=== PATIENT | female | born 1945 | race Caucasian/White ===

== ENCOUNTER → 2016-10-06 14:49 | Outpatient (CLI) | payer MEDICARE ==
[2016-04-17 10:06] VITALS: BMI 16.8
[~2016-10-06 14:49] MED LIST: ANUSOL-HC25 MG RC; CHLOR-TRIMETON4 MG PO; FLUTICASONE PRO16 GM NASAL; GLUCOSAMINE & C1 CAP PO; HYDROCODONE-APA1 TAB PO; MAGNESIUM-2 GM/50 M1; MULTIPLE VITAMI1 TA1 PO; NEXIUM40 MG PO; ULTRAM50 MG PO; VITAMIN E400 UNI2 PO; ZYRTEC10 MG PO
== END | disposition home or self-care (01) ==
LOC: D.US 14:49
DX: R60.0 Localized edema (principal)

== ENCOUNTER 2016-12-13 06:31 | Day surgery (SDC) | payer MEDICARE ==
[~2016-12-13] VITALS: Ht 160 cm; Wt 42.7 kg
[2016-12-13 07:20] LABS: HEMOGLOBIN 11.8 g/dL (12-16); MCH 26.6 pg (26.0-34.0); MCHC 31.9 g/dL (31.0-37.0); MCV 83.3 fL (80.0-100.0); MEAN PLATELET VOLUME 10.8 fL (7.4-10.4); RBC 4.44 10x6/uL (4.00-5.40); RDW 17.4 % (11.5-14.5); WBC 7.3 10x3/uL (4.8-10.8)
[2016-12-13] MEDS ORDERED: MAGNESIUM PO (07:51)
[2016-12-13] MEDS ORDERED: K-DUR20 MEQ PO (07:53)
[2016-12-13] MEDS ORDERED: CILOSTAZOL50 MG (07:53)
[2016-12-13] MEDS ORDERED: LIPITOR40 MG PO (07:53)
[2016-12-13] MEDS ORDERED: PLAVIX75 MG PO (07:53)
[2016-12-13] MEDS ORDERED: PROZAC20 MG PO (07:54)
[2016-12-13] MEDS ORDERED: BAYER CHEWABLE81 MG PO (07:54)
[2016-12-13 08:16] VITALS: BP 137/43; Ht 160 cm; Wt 42.7 kg
--- NOTE | 2016-12-13 09:45 | NUR ---
0905-RECD TO ROOM. ALERT. TO BATHROOM WITH ASSIST. IV PATENT 0915-FULL LIQUIDS SERVED.
--- NOTE | 2016-12-13 10:30 | NUR ---
1005-IV D/C AND D/C INSTRUCTIONS REVIEWED. 1015-D/C HOME VIA .
--- NOTE | 2016-12-15 15:57 | OP ---
PATIENT NAME: NARCISA MEAD MEDICAL RECORD: [id number] :47 LOCATION:[facility] ADMISSION DATE: SURGEON: DOUG VENTURA DO DATE OF OPERATION: 12/13/2016 DATE OF PROCEDURE: 12/13/2016 PROCEDURE: EGD with biopsies and hemostasis with gold probe cauterization. INDICATIONS FOR PROCEDURE: Abnormal findings on CT scan showing enlarged rugal folds. SCOPE: Olympus video gastroscope. MEDICATIONS: Propofol 170 mg IV per anesthesia. ESTIMATED BLOOD LOSS: Less than 5 mL. COMPLICATIONS: None. DESCRIPTION OF PROCEDURE: Informed consent was given. The patient was made comfortable with the above medication. After reaching an adequate level of sedation by slow IV push, the patient was placed on her left side. The endoscope was then advanced under direct visualization through the mouth to the second portion of the duodenum. The upper, middle, and distal thirds of the esophagus appeared normal. At the GE junction, there was mild evidence of reflux esophagitis, LA class B. Two biopsies were taken. After these biopsies, there was a fair amount of bleeding, which was monitored for a short period. When the bleeding did not stop, a gold probe was used for cauterization for hemostasis successfully. The endoscope was advanced into the stomach and retroflexed to view the cardia, which appeared normal. In the stomach, there were enlarged rugal folds throughout the entire body extending up into the fundus and down towards the antrum. The antrum appeared normal without evidence of erosions or ulcerations. The scope was advanced beyond the pylorus into the duodenum where the bulb and second portion of the duodenum appeared normal. Scope was withdrawn back into the stomach and multiple biopsies were taken in the antrum, body of the stomach, and fundus of the stomach. Biopsies were submitted for histology and to rule out H. pylori. Scope was then withdrawn from the patient. The patient tolerated the procedure well and there were no complications. IMPRESSION: 1. Reflux esophagitis grade B, biopsies taken. 2. Enlarge rugal folds, multiple biopsies taken. 3. Hemostasis with gold probe cauterization taken of the GE junction after biopsies. 4. No specific abnormalities to correlate to abnormal CT findings other than the enlarged rugal folds which have been biopsied. There were no focal sites that appeared abnormal compared to the rest of the mucosa of the stomach. PLAN AND RECOMMENDATIONS: 1. Discharge home when recovery parameters are met. 2. Continue current diet. 3. Continue current medications, including Nexium 40 mg daily. 4. Recommend alcohol cessation. OPERATIVE REPORT [id number] NARCISA MEAD 5. Follow up biopsy specimen results with further recommendations to follow findings. TRANSINT:[id number] Voice Confirmation ID: [id number] DOCUMENT ID: [id number] DOUG VENTURA DO at 1557 CC: [id number] DICTATION DATE: 12/13/16 0851 CLASSIFICATION AND TREATMENT DIRECTOR: 12/13/16 1224 [facility] 12/13/[address] [facility] [address] [place] [address]
== END 2016-12-13 10:15 | disposition home or self-care (01) ==
LOC: D.OPS 06:31
PROVIDERS: Anesthesiology
DX: K21.0 Gastro-esophageal reflux disease with esophagitis (principal); Z85.038 Personal history of other malignant neoplasm of large intestine; F17.200 Nicotine dependence, unspecified, uncomplicated; Z01.812 Encounter for preprocedural laboratory examination

== ENCOUNTER 2017-05-26 15:50 | Emergency (ER) | payer MEDICARE ==
[2016-12-13 08:16] VITALS: BMI 16.6
[~2017-05-26 15:50] MED LIST changes: +BAYER CHEWABLE81 MG PO; +CILOSTAZOL50 MG; +K-DUR20 MEQ PO; +LIPITOR40 MG PO; +MAGNESIUM PO; +PLAVIX75 MG PO; +PROZAC20 MG PO
== END 2017-05-26 17:33 | disposition home or self-care (01) ==
LOC: D.ER 15:50
DX: S42.294A Other nondisplaced fracture of upper end of right humerus, initial encounter for closed fracture (principal); W19.XXXA Unspecified fall, initial encounter; Y93.89 Activity, other specified; Y92.029 Unspecified place in mobile home as the place of occurrence of the external cause; Z85.038 Personal history of other malignant neoplasm of large intestine

== ENCOUNTER → 2017-09-14 17:38 | Outpatient (CLI) | payer MEDICARE ==
[2016-12-13 08:16] VITALS: BMI 16.6
== END | disposition home or self-care (01) ==
LOC: D.MAMMO 13:30
DX: Z12.31 Encounter for screening mammogram for malignant neoplasm of breast (principal)

== ENCOUNTER → 2018-07-24 15:41 | Outpatient (CLI) | payer MEDICARE ==
[2016-12-13 08:16] VITALS: BMI 16.6
== END | disposition home or self-care (01) ==
LOC: D.CT 15:41
DX: J44.9 Chronic obstructive pulmonary disease, unspecified (principal)

== ENCOUNTER 2018-09-04 08:38 | Day surgery (SDC) | payer MEDICARE ==
[~2018-09-04] VITALS: Ht 160 cm; Wt 43.2 kg
[2018-09-04 09:07] LABS: HEMATOCRIT 47.7 % (36.0-48.0); HEMOGLOBIN 16.7 g/dL (12-16); MCH 33.6 pg (26.0-34.0); MEAN PLATELET VOLUME 9.8 fL (7.4-10.4); RBC 4.97 10x6/uL (4.00-5.40); RDW 14.6 % (11.5-14.5); WBC 10.8 10x3/uL (4.8-10.8)
[2018-09-04 09:14] LABS: INR 1.17 (0.85-1.17); PROTIME 14.4 SECONDS (11.6-15.0)
[2018-09-04 09:20] VITALS: BP 143/71; Ht 160 cm; Wt 43.2 kg
[2018-09-04 09:21] LABS: ANION GAP 17.5 mmol/L (8-16); CALCIUM 9.3 mg/dL (8.5-10.1); CARBON DIOXIDE 26.3 mmol/L (21.0-32.0); CREATININE - SERUM 0.8 mg/dL (0.6-1.3); POTASSIUM - SERUM 3.8 mmol/L (3.5-5.1)
--- NOTE | 2018-09-06 10:57 | OP ---
PATIENT NAME: NARCISA MEAD MEDICAL RECORD: [id number] :47 LOCATION:[facility] ADMISSION DATE: SURGEON: DOUG VENTURA DO DATE OF OPERATION: 09/04/2018 PROCEDURE: Colonoscopy with polypectomy. INDICATIONS FOR PROCEDURE: History of colon cancer, status post resection in 2005 as well as a personal history of colon polyps. Her last colonoscopy was in April of 2016. SCOPE: Olympus video pediatric colonoscope. MEDICATIONS: Propofol 300 mg IV per anesthesia. WITHDRAWAL TIME: 14 minutes. ESTIMATED BLOOD LOSS: Minimal. COMPLICATIONS: None. FINDINGS: Informed consent was given. The patient was made comfortable with the above medication. After reaching an adequate level of sedation by slow IV push, the patient was placed on her left side. A digital rectal examination was performed and was normal. The endoscope was then advanced under direct visualization through the rectum to the cecum/ileocolonic anastomosis. The endoscope was slowly withdrawn and mucosa was carefully examined. There was only 1 polyp visualized on today's examination. It was benign appearing, sessile polyp, which measured approximately 8-9 mm in size. It was removed using a hot snare. There appeared to be 2 anastomosis visualized on today's examination. The first was an ileocolonic anastomosis and the other was a colocolonic anastomosis located at approximately 15 cm. Both sites appeared normal without any abnormal tissue growth surrounding them. Retroflexion was performed in the rectum with visualization of grade I internal hemorrhoids without bleeding. The endoscope was withdrawn from the patient. The patient tolerated the procedure well and there were no complications. IMPRESSION: 1. A single benign-appearing sessile polyp was removed from the ascending colon using a hot snare. 2. Prior intervention in the form of partial colon resections with anastomosis. 3. Grade I internal hemorrhoids without active bleeding. PLAN AND RECOMMENDATIONS: 1. Discharge home when recovery parameters are met. 2. Follow up biopsy specimen results. 3. High fiber diet. 4. Continue current medications. 5. Recall colonoscopy in 2-3 years for continued surveillance based on a personal history of polyps and colon cancer, status post resection. TRANSINT:[id number] Voice Confirmation ID: [id number] DOCUMENT ID: [id number] OPERATIVE REPORT [id number] NARCISA MEAD DOUG VENTURA DO at 7523 CC: [id number] DICTATION DATE: 09/04/18 1116 [employer] BUSINESS ANALYST: 09/04/18 1203 [facility] [place] 09/04/18 [facility] [address] [place] [id number]
== END 2018-09-04 12:10 | disposition home or self-care (01) ==
LOC: D.OPS 08:38
PROVIDERS: Anesthesiology
DX: Z85.038 Personal history of other malignant neoplasm of large intestine (principal); K64.0 First degree hemorrhoids; D12.2 Benign neoplasm of ascending colon; Z01.812 Encounter for preprocedural laboratory examination

== ENCOUNTER 2018-09-11 08:00 | Outpatient (CLI) | payer MEDICARE ==
[2018-09-04 09:20] VITALS: BMI 16.8
== END 2018-09-11 09:00 | disposition home or self-care (01) ==
LOC: D.MAMMO 08:00
DX: Z12.31 Encounter for screening mammogram for malignant neoplasm of breast (principal)

== ENCOUNTER → 2018-09-27 10:02 | Outpatient (CLI) | payer MEDICARE ==
[2018-09-04 09:20] VITALS: BMI 16.8
[2018-09-27 10:44] LABS: BASOPHILS 0.2 % (0-2); EOSINOPHILS 1.4 % (0-7); HEMATOCRIT 44.6 % (36.0-48.0); HEMOGLOBIN 15.4 g/dL (12-16); IMMATURE GRANULOCYTES 0.3 % (0-5); LYMPHOCYTES 34.8 % (15-50); MCH 33.6 pg (26.0-34.0); MCHC 34.5 g/dL (31.0-37.0); MCV 97.4 fL (80.0-100.0); MEAN PLATELET VOLUME 9.7 fL (7.4-10.4); MONOCYTES 7.2 % (2-11); NEUTROPHILS 56.1 % (40-80); PLATELET COUNT 188 10x3/uL (130-400); RBC 4.58 10x6/uL (4.00-5.40); WBC 9.9 10x3/uL (4.8-10.8)
[2018-09-27 11:44] LABS: APPEARANCE CLEAR (CLEAR); BILIRUBIN NEGATIVE (NEGATIVE); COLOR STRAW (YELLOW); GLUCOSE NEGATIVE (NEGATIVE); KETONE NEGATIVE (NEGATIVE); NITRITE NEGATIVE (NEGATIVE); PROTEIN NEGATIVE (NEGATIVE); SPECIFIC GRAVITY 1.005 (1.005-1.020); UROBILINOGEN NORMAL (NORMAL)
[2018-09-27 11:45] LABS: BACTERIA FEW /hpf (NONE SEEN); MUCUS <1+ /lpf (NONE SEEN); WHITE CELLS - URINE RARE /hpf (0-5)
[2018-09-27 11:46] LABS: EPITHELIAL CELLS RARE /hpf (0-5)
[2018-09-27 12:41] LABS: ERYTHROCYTE SEDIMENTATION RATE 6 mm/hr (0-30)
== END | disposition home or self-care (01) ==
LOC: D.RAD 10:02
PROVIDERS: ATTEND Internal Medicine Gastroenterology
DX: R10.13 Epigastric pain (principal); R19.7 Diarrhea, unspecified

== ENCOUNTER 2018-11-08 08:25 | Day surgery (SDC) | payer MEDICARE ==
[~2018-11-08] VITALS: Ht 160 cm; Wt 41.8 kg
[2018-11-08 08:52] LABS: BASOPHILS 0.1 % (0-2); EOSINOPHILS 1.1 % (0-7); HEMATOCRIT 43.6 % (36.0-48.0); HEMOGLOBIN 15.5 g/dL (12-16); IMMATURE GRANULOCYTES 0.1 % (0-5); LYMPHOCYTES 27.4 % (15-50); MCH 34.9 pg (26.0-34.0); MCHC 35.6 g/dL (31.0-37.0); MCV 98.2 fL (80.0-100.0); MEAN PLATELET VOLUME 10.4 fL (7.4-10.4); MONOCYTES 12.3 % (2-11); PLATELET COUNT 170 10x3/uL (130-400); RBC 4.44 10x6/uL (4.00-5.40); RDW 13.4 % (11.5-14.5); WBC 9.9 10x3/uL (4.8-10.8)
[2018-11-08 09:12] LABS: APTT 33.9 SECONDS (22.8-39.4); INR 1.08 (0.85-1.17); PROTIME 13.5 SECONDS (11.6-15.0)
[2018-11-08] MEDS ORDERED: REMERON15 MG (10:21)
[2018-11-08] MEDS ORDERED: PEPCID40 MG PO (10:21)
[2018-11-08 10:36] VITALS: BP 91/48; Ht 160 cm; Wt 41.8 kg
--- NOTE | 2018-11-15 18:24 | OP ---
PATIENT NAME: NARCISA MEAD MEDICAL RECORD: [id number] :47 LOCATION:[facility] ADMISSION DATE: SURGEON: DOUG VENTURA DO DATE OF OPERATION: 11/08/2018 PROCEDURE: EGD with biopsies. INDICATIONS FOR PROCEDURE: Epigastric pain and diarrhea. SCOPE: Olympus video gastroscope. MEDICATIONS: Propofol 220 mg IV per anesthesia. ESTIMATED BLOOD LOSS: Minimal. COMPLICATIONS: None. FINDINGS AND DESCRIPTION OF PROCEDURE: Informed consent was given. The patient was made comfortable with the above medication. After reaching an adequate level of sedation by slow IV push, the patient was placed on her left side. The endoscope was advanced under direct visualization through the mouth to the second portion of the duodenum with ease. The entire esophagus appeared normal. At the GE junction, there were minor changes consistent with reflux esophagitis grade A. The endoscope was advanced into the stomach and retroflexed to view the cardia, which appeared normal. The fundus and body of the stomach appeared normal. In the antrum and prepyloric regions, there were some changes consistent with gastritis, which included erythema and granularity. There were 2 ulcers located in the antrum along the greater and posterior curve. They were clean based without any bleeding. One measured approximately 3.5 x 2.5 cm in size. The other was approximately 1 x 1 cm. Random gastric biopsies were taken to submit for histopathology and to rule out the presence of H. pylori. The endoscope was advanced beyond the pylorus into the duodenum, which appeared normal down to the second portion. Random cold forceps biopsies were taken to submit for histopathology. The endoscope was withdrawn from the patient. The patient tolerated the procedure well and there were no complications. IMPRESSION: 1. LA class A reflux-induced esophagitis. 2. Gastritis. 3. Two gastric ulcers as described above. PLAN AND RECOMMENDATIONS: 1. Discharge home when recovery parameters are met. 2. Follow up biopsy specimen results. 3. GERD diet and reflux precautions. 4. Continue current medications including Nexium 40 mg daily. 5. A prescription will be given for Carafate 1 gram tablets to be taken 3 times daily times 30 days. 6. Repeat EGD in 8 weeks to document healing of ulcer. If the ulcer has not healed at that time, multiple biopsies will be taken for further diagnosis. TRANSINT:[id number] Voice Confirmation ID: [id number] DOCUMENT ID: [id number] OPERATIVE REPORT [id number] NARCISA MEAD,DOUG Lindsay DO at 1824 CC: [id number] DICTATION DATE: 11/08/18 1233 [employer] WORKER: 11/08/18 1518 [facility] 11/08/18 [place] [id number] [place] [id number]
== END 2018-11-08 13:50 | disposition home or self-care (01) ==
LOC: D.OPS 08:25
PROVIDERS: Anesthesiology; ATTEND Internal Medicine Gastroenterology
DX: K21.0 Gastro-esophageal reflux disease with esophagitis (principal); K29.50 Unspecified chronic gastritis without bleeding; K25.9 Gastric ulcer, unspecified as acute or chronic, without hemorrhage or perforation; Z01.812 Encounter for preprocedural laboratory examination

== ENCOUNTER 2020-10-01 14:18 | Outpatient (CLI) | payer MEDICARE ==
[2018-11-08 10:36] VITALS: BMI 16.3
[~2020-10-01 14:18] MED LIST changes: +PEPCID40 MG PO; +REMERON15 MG
== END 2020-10-01 23:59 | disposition home or self-care (01) ==
LOC: D.MAMMO 14:18
PROVIDERS: ATTEND Family Medicine
DX: Z12.31 Encounter for screening mammogram for malignant neoplasm of breast (principal)

== ENCOUNTER 2020-10-16 15:46 | Outpatient (CLI) | payer MEDICARE ==
[2018-11-08 10:36] VITALS: BMI 16.3
== END 2020-10-16 23:59 | disposition home or self-care (01) ==
LOC: D.MAMMO 15:46
PROVIDERS: ATTEND Family Medicine
DX: R92.8 Other abnormal and inconclusive findings on diagnostic imaging of breast (principal)